=== PATIENT | male | born 1985 | race Caucasian/White ===

== ENCOUNTER 2023-03-19 16:18 | Emergency (ER) | payer OTHER, BC, SELFPAY ==
--- NOTE | 2023-03-19 16:26 | XR_ITS ---
PROCEDURE INFORMATION: Exam: XR Left Wrist Exam date and time: 03/19/2023 4:23 PM Age: 37 years old Clinical indication: Pain; Wrist; Left; Additional info: Pain after using airhammer TECHNIQUE: Imaging protocol: Radiologic exam of the left wrist. Views: 3 or more views. COMPARISON: No relevant prior studies available. FINDINGS: Bones/joints: Normal. No acute fracture identified. Soft tissues: Normal. IMPRESSION: No acute findings.
[2023-03-19 16:35] VITALS: BP 129/85; PULSE 84; RESP 20; TEMP 36.8; O2SAT 98; BMI 27.8
--- NOTE | 2023-03-19 16:52 | EXP.UTC ---
Discharge Plan Disposition Patient Disposition: Home, Self-Care Condition: Good Prescriptions Prescriptions: New methylprednisolone [Medrol (Vasquez)] 4 mg tablets,dose pack See Rx Instructions .Route .COMPLEX 6 Days Qty: 21 0RF Rx Instructions: taper pack; No Action naproxen 500 mg Tablet 500 mg PO BID Referrals Follow up/Referrals: Leighann Aguilar APRN [Primary Care Provider] - See instructions Activity Restrictions/Add. Instructions Additional Instructions/Restrictions: *RICE, Rest the extremity, Ice 15-20 minutes 3-4 times daily, Compress- wear the alejandro wrap as discussed as much as possible to help reduce swelling and pain, Elevate the extremity when at rest *Velcro Splint is for support and help control swelling, use it except in the shower. Be sure that is not to tight but not to loose either *Elevate when resting? *Naproxen as prescribed every 12 hours as needed for pain an inflammation. If need something more can take Tylenol in between doses to help Immediately follow up with your family doctor for new or worsening of symptoms, or no noticeable improvement over the next 3-5 days Follow up with Orthopedics as discussed Dont take your dose of Naproxen tonight you had an injection of Toradol in the [facility] which is similar Clinical Impressions Clinical Impression: Left wrist pain Instructions Patient Instructions: DI for Wrist Pain, Methylprednisolone Discharge ED Provider: Lisandra Hoffmann [facility] General Stated complaint: LT wrist pain Mode of Arrival: Ambulatory Source of Information: Patient Limitations: No Limitations Time Seen by Provider: 03/19/23 16:40 Description of Symptoms (Recalled from Triage Doc. by RN): PATIENT C/O STIFFNESS TO LEFT WRIST X 2 DAYS AND PAIN THAT STARTED TODAY. NO KNOWN INJURY. PATIENT DID SAY HE HAS BEEN USING AN AIR HAMMER AT WORK HEENT Symptoms (Recalled from RN notes): No Resp Symptoms (Recalled from RN notes): No Skin Symptoms (Recalled from RN notes): No MS Symptoms (Recalled from RN notes): Yes Functional Status (Recalled from RN notes): WNL History of Present Illness Provider Complaint: Patient states that he uses an airhammer at work and for the last 2 days he has been having stiffness in his left wrist States that today he woke up and having pain in his wrist that is better if he has it in velcro splint Denies known injury just states that it feels stiff like if he moves it it may break Related Data Home Medications Medication Instructions Recorded Confirmed naproxen 500 mg tablet 500 mg PO BID Pain 03/19/23 03/19/23 Previous Rx's Medication Instructions Recorded methylprednisolone 4 mg tablets in See Rx Instructions .Route 03/19/23 a dose pack (Medrol (Vasquez)) .COMPLEX 6 days #21 tabs Allergies Allergy/AdvReac Type Severity Reaction Status Date / Time No Known Allergies Allergy Verified 03/19/23 16:51 Worker's Comp Is this a Worker's Comp case?: No [facility] Disclaimer: The information contained in this section may have been updated after the patient was seen, as this information can be updated by other users. Surgical History (Updated 03/19/23 @ 16:52 by Jinny Carranza RN) History of shoulder surgery Social History Smoking Status: Unknown if ever smoked alcohol intake: never current occupational status: employed Travel in the last 8 weeks: None ROS Obtained: Yes All systems reviewed & no additional complaints except as documented and Yes Systems reviewed as appropriate & no additional complaints except as documented Constitutional Constitutional: Reports system reviewed and no additional complaints, except as documented and Reports as per HPI Gastrointestinal Gastrointestingal: Reports system reviewed and no additional complaints, except as documented and as per HPI Musculoskeletal Musculoskeletal: Reports system reviewed and no additional complaints, except as documented and Reports as pe
[2023-03-19 17:21] VITALS: BP 129/85; PULSE 84; RESP 20; TEMP 36.8; O2SAT 98
== END 2023-03-19 17:26 | disposition home or self-care (01) ==
PROVIDERS: Emergency Provider Nurse Practitioner; PCP Nurse Practitioner
DX: M25.532 Pain in left wrist (principal)
CPT/HCPCS: 73110; 96372; 99204; 99212; G0463